=== PATIENT | male | born 2000 | race Caucasian/White ===

== ENCOUNTER 2021-03-07 19:44 | Emergency (ER) | payer OTHER ==
[2021-03-07 20:48] LABS: BASOPHIL 0.3 % (0-2); EOSINOPHIL 0.4 % (0-5); HCT 41.9 % (42.0-52.0); HGB 14.1 g/dl (13.2-18.0); MCH 31.3 pg (25.0-31.0); MCHC 33.7 g/dL (32.0-36.0); MCV 93.1 fL (78.0-100.0); MONOCYTE 7.2 % (0-12); MPV 11.4 fL (6.0-9.5); NEUTROPHIL 68.7 % (41-80); NRBC 0; PLT 161 K/uL (150-400); RDW 12.5 % (11.5-14.0); WBC 10.2 K/uL (4.0-10.5)
[2021-03-07 21:13] LABS: IRON 43 ug/dL (65-175); SALICYLATE <0.2 mg/dL (2.8-20.0)
[2021-03-07 21:17] LABS: ALBUMIN 4.4 g/dL (3.4-5.0); ALKALINE PHOSHATASE 79 U/L (46-116); ALT 27 U/L (16-63); AST 20 U/L (15-37); BILIRUBIN - TOTAL 0.3 mg/dL (0.2-1.0); BUN 17 mg/dL (7-18); BUN/CREAT RATIO (CALC) 18.5 RATIO; CHLORIDE 102 mmol/L (98-107); CO2 (BICARBONATE) 27 mmol/L (21-32); CREATININE 0.92 mg/dL (0.67-1.17); GLOBULIN (CALCULATION) 3.5 g/dL; GLUCOSE 121 mg/dL (74-106); MAGNESIUM 2.3 mg/dL (1.8-2.4); POTASSIUM 3.8 mmol/L (3.5-5.1); TOTAL PROTEIN 7.9 g/dL (6.4-8.2)
[2021-03-07 21:29] LABS: ACETAMINOPHEN (TYLENOL) < 2.0 ug/mL (10.0-30.0)
[2021-03-07 21:42] LABS: BILIRUBIN NEGATIVE (NEGATIVE); BLOOD NEGATIVE Ery/uL (NEGATIVE); CLARITY CLEAR (CLEAR); COLOR YELLOW (YELLOW); GLUCOSE (U) NORMAL (NORMAL); LEUKOCYTES NEGATIVE Leu/uL (NEGATIVE); NITRITE NEGATIVE (NEGATIVE); PROTEIN NEGATIVE (NEGATIVE); SPECIFIC GRAVITY 1.015 (1.001-1.030); UROBILINOGEN 0.2 mg/dL (0.2-1.0)
== END 2021-03-08 00:37 | disposition home or self-care (01) ==
LOC: FER 19:44
PROVIDERS: Emergency Medicine
DX: T50.991A Poisoning by other drugs, medicaments and biological substances, accidental (unintentional), initial encounter (principal)
CPT/HCPCS: 36415; 80053; 81003; 83540; 83605; 83735; 84484; 85025; 93005; G0480; J2405; J2765; J7030